=== PATIENT | female | born 1980 | race Caucasian/White ===

== ENCOUNTER 2023-12-28 15:13 | Outpatient (AMB) | payer OTHER, SELFPAY ==
--- NOTE | 2023-12-28 15:20 | A.OFFPC_ITS ---
Vital Signs 12/28/23 15:33 12/28/23 15:38 Height 5 ft 2 in Weight 177 lb 2 oz BMI 32.4 BP 154/82 H 128/84 Blood Pressure Location Lt brachial Lt brachial Position Sitting Sitting Respiration 12 Pulse 94 Pulse Source Pulse Oximeter Pulse Oximetry (%) 100 Oxygen Delivery Method Room Air Intake Visit Reasons: RAUL FROM [facility]/ MEDICATION REFILL Intake Note: New patient visit. Requesting medication for panic attacks when needed. She was taking Xanax. 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 Allergies prednisone Allergy (Severe, Verified 12/28/23 15:23) blood pressure and heart rate elevated, childers skin Sulfa (Sulfonamide Antibiotics) Allergy (Intermediate, Verified 12/28/23 15:23) Rash Tobacco use date assessed: 12/28/23 Dental Screening Dental Screen Date: 12/28/23 Did you have a dental visit in the last 12 months?: Yes Did you have a dental problem in the last 6 months where you did not have access to dental care?: No Was dental information given to patient?: Patient has dentist HPI HPI Comments History of Present Illness Details The patient is a 43 year old female with a past medical history of hypertension, depression/anxiety, migraines presenting to [facility] care. Transfer from [facility] Anxiety: On sertraline 25mg daily. doing well on the medication. Has a lot of difficulty with public speaking-interested in propranolol CV: On lisinopril 5mg daily. Denies chest pain, dizziness. She has been unable to lose weight with diet and exercise and would be interested in GLP agonist therapy Neuro: On imitrex prn. Triggered by stress. Relative just had brain tumor r emoved. ROS CONSTITUTIONAL: Denies weight loss, fever and chills. HEENT: Denies changes in vision and hearing. RESPIRATORY: Denies SOB and cough. CV: Denies palpitations and CP GI: Denies abdominal pain, nausea, vomiting and diarrhea. : Denies dysuria and urinary frequency. MSK: Denies new myalgia and joint pain. SKIN: Denies rash and pruritus. NEUROLOGICAL: Denies headache PSYCHIATRIC: Denies recent changes in mood. PHYSICAL EXAM: GENERAL: Alert and oriented x 3. NAD EYES: EOMI. Anicteric. HENT: Moist mucous membranes. No scleral icterus. No cervical lymphadenopathy. LUNGS: Clear to auscultation bilaterally. CARDIOVASCULAR: Regular rate and rhythm. No murmur. No JVD. ABDOMEN: Soft, non-tender +bs EXTREMITIES: No edema. Non-tender. SKIN: No rashes or lesions. Warm. NEUROLOGIC: No focal neurological deficits. CN II-XII grossly intact PSYCHIATRIC: Cooperative. 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 1. Little interest or pleasure in doing things: not at all 2. Feeling down, depressed, or hopeless: not at all 3. Trouble falling or staying asleep, or sleeping too much: not at all 4. Feeling tired or having little energy: not at all 5. Poor appetite or overeating: not at all 6. Feeling bad about yourself - or that you are a failure or have let yourself or your family down: not at all 7. Trouble concentrating on things, such as reading the newspaper or watching television: not at all 8. Moving or speaking so slowly that other people could have noticed. Or the opposite - being so fidgety or restless that you have been moving around a lot more than usual: not at all 9. Thoughts that you would be better off or of hurting yourself in some way: not at all Total score: 0 Depression Screening Interpretation: Negative (neg) Depression Screening Done: Yes 68027 - PHQ-9 Billing: Yes Source: Developed by Drs. Richard Rowan, Aixa Barnhart, Giorgio Brooks and colleagues, with an educational genaro from [employer] Thrive Questionnaire Date Thrive assessed: 12/28/23 I am a: Patient What is your living situation today?: I have a steady place to live Within the past 12 months, did the food you bought not last and you didn't have the money to get more?: Never true Within the past 12 months, did you worry whether your food would run out before you got money to buy more?: I choose not to answer this question Do you have trouble paying for medicines?: No Do you have trouble getting transportation to medical appointments?: No Do you have trouble paying your heating and electricity bill?: I choose not to answer this question Do you have trouble taking care of your child, family member or friend?: No Do you have trouble with day-to-day activities such as bathing, preparing meals, shopping, managing finances, etc.?: No Are you currently unemployed and looking for a job?: No Are you interested in more education?: No Please select the resources that you would like help with: None Currently or been in a relationship where the following occur: No concerns reported THRIVE Score: 0 AUDIT C Alcohol Use Questionnaire (AUDIT-C) 1. How often do you have a drink containing alcohol?: Monthly or less 2. How many drinks containing alcohol do you have on a typical day when you are drinking?: 1 or 2 3. How often do you have six or more drinks on one occasion?: Never Total Score: 1 WOODROW-7 AMB Questionnaire WOODROW-7 Date WOODROW - 7 assessed: 12/28/23 Feeling nervous, anxious, or on edge: 3 = Nearly every day Not being able to stop or control worryin = Nearly every day Worrying too much about different things: 3 = Nearly every day Trouble relaxin = Nearly every day Being so restless that it is hard to sit still: 0 = Not at all Becoming easily annoyed or irritable: 0 = Not at all Feeling afraid as if something awful might happen: 0 = Not at all Total WOODROW-7 score (0-4 normal; 5-9 mild; 10-14 moderate; 15-21 severe): 12 Source: Developed by Drs. Richard Rowan, Aixa Barnhart, Giorgio Brooks and colleagues, with an educational genaro from [employer] WOODROW-7 Assessment Billing WOODROW-7 Assessment Tool: WOODROW-7 Assessment 92761 Physical exam (Primary Care) Vital Signs: Last Vital Signs Pulse 94 12/28/23 15:33 Resp 12 12/28/23 15:33 BP 128/84 12/28/23 15:38 Pulse Ox 100 12/28/23 15:33 Oxygen Delivery Method Room Air 12/28/23 15:33 BMI result Body Mass Index 32.4 Tobacco/Smoking Status: Tobacco use Status Tobacco use date assessed 12/28/23 12/28/23 15:36 Patient Tobacco Use Status Former Tobacco user 12/28/23 15:36 e-Cigarette/Vaping Use Never Used 12/28/23 15:36 PHQ-9: PHQ-9 Score PHQ-9: Total score 0 12/30/23 10:07 Depression Screening Interpretation: Negative (neg) Thrive Assessment: Date of Thrive Assessment Date Thrive assessed 12/28/23 12/28/23 15:40 Currently or been in a relationship where the following occur: No concerns reported Coding Level of Care Code New Pt Level 4 (15833) Complex EM visit Add On G2211 Diagnoses Anxiety F41.9 Migraine without status migrainosus, not intractable, unspecified migraine type G43.909 Intractability: not intractable Migraine type: unspecified Status migrainosus presence: without status migrainosus Additional Codes WOODROW-7 Assessment Billing - WOODROW-7 Assessment Tool: WOODROW-7 Assessment 93022 ([id number]) PHQ-9 - 00156 - PHQ-9 Billing: Yes ([id number]) Assessment & Plan Assessment & Plan (1) Anxiety: Code(s): F41.9 - Anxiety disorder, unspecified Category: Medical Plan: Controlled on sertraline Has used xanax in past for panic attacks which are infrequent-ordered Propranolol for presentations (2) Migraine: Code(s): G43.909 - Migraine, unspecified, not intractable, without status migrainosus Category: Medical Qualifiers: Intractability: not intractable Migraine type: unspecified Status migrainosus presence: without status migrainosus Qualified Code(s): G43.909 - Migraine, unspecified, not intractable, without status migrainosus Plan: stable on current therapy Orders: Orders Complete Blood Count Auto Diff 12/29/23 D64.9 - Anemia, unspecified, F41.9 - Anxiety disorder, unspecified, Z13.220 - Encounter for screening for lipoid disorders, Z13.228 - Encounter for screening for other metabolic disorders Comprehensive Met. Panel 12/29/23 D64.9 - Anemia, unspecified, F41.9 - Anxiety disorder, unspecified, Z13.220 - Encounter for screening for lipoid disorders, Z13.228 - Encounter for screening for other metabolic disorders Estradiol Ultra Sensitive 12/29/23 D64.9 - Anemia, unspecified, F41.9 - Anxiety disorder, unspecified, Z13.220 - Encounter for screening for lipoid disorders, Z13.228 - Encounter for screening for other metabolic disorders AMB Cologuard 12/28/23 Z12.11 - Encounter for screening for malignant neoplasm of colon, Z12.12 - Encounter for screening for malignant neoplasm of rectum Lipid Panel 12/29/23 D64.9 - Anemia, unspecified, F41.9 - Anxiety disorder, unspecified, Z13.220 - Encounter for screening for lipoid disorders, Z13.228 - Encounter for screening for other metabolic disorders TSH reflex Free T4 12/29/23 D64.9 - Anemia, unspecified, F41.9 - Anxiety disorder, unspecified, Z13.220 - Encounter for screening for lipoid disorders, Z13.228 - Encounter for screening for other metabolic disorders Lyme IgG/IgM w/reflex to WB 12/29/23 D64.9 - Anemia, unspecified, F41.9 - Anxiety disorder, unspecified, Z13.220 - Encounter for screening for lipoid disorders, Z13.228 - Encounter for screening for other metabolic disorders Lutenizing Hormone 12/29/23 D64.9 - Anemia, unspecified, F41.9 - Anxiety disorder, unspecified, Z13.220 - Encounter for screening for lipoid disorders, Z13.228 - Encounter for screening for other metabolic disorders Referrals Dermatology Referral D64.9 - Anemia, unspecified, F41.9 - Anxiety disorder, unspecified, Z00.00 - Encounter for general adult medical examination without ab normal findings, Z13.220 - Encounter for screening for lipoid disorders, Z13.228 - Encounter for screening for other metabolic disorders Medications: New sumatriptan succinate take 1 tab at onset of headache; if no relief may repeat 1 tab after at least 2 hrs; max = 4 tabs/24 hr PO 30 tabs 3RF lisinopril 5 mg PO DAILY 90 tabs 3RF alprazolam (Xanax) 0.5 mg PO DAILY PRN 20 tabs 0RF anxiety propranolol 10 mg PO DAILY 30 days PRN 30 tabs 3RF social anxiety Mounjaro (tirzepatide) for 4 weeks 2.5 mg (0.5 mL) subcut QWEEK 2 mL 3RF NS ondansetron HCl 4 mg PO Q8H 30 tabs 3RF sertraline 25 mg PO DAILY 90 tabs 3RF linaclotide (Linzess) 145 mcg PO DAILY 90 caps 3RF
[2023-12-28 15:33] VITALS: BP 154/82; PULSE 94; RESP 12; O2SAT 100; BMI 32.4
[2023-12-28 15:38] VITALS: BP 128/84
== END 2023-12-28 16:52 | disposition home or self-care (01) ==
PROVIDERS: PCP Internal Medicine; Visit Provider Internal Medicine
DX: F41.9 Anxiety disorder, unspecified (principal); G43.909 Migraine, unspecified, not intractable, without status migrainosus

== ENCOUNTER → 2023-12-28 15:13 | Outpatient (BNVA) | payer OTHER, SELFPAY | PROVIDERS: PCP Internal Medicine; Visit Provider Internal Medicine | DX: F41.9 Anxiety disorder, unspecified (principal); G43.909 Migraine, unspecified, not intractable, without status migrainosus; Z79.899 Other long term (current) drug therapy | CPT/HCPCS: 96127 ==

== ENCOUNTER 2023-12-29 07:34 | Outpatient (REF) | payer OTHER, SELFPAY ==
[2023-12-29 11:09] LABS: MANUAL DIFF FLAG NO
[2023-12-29 11:23] LABS: Basophils Percent Auto 0.8 % (0-2); Eosinophils Absolute Auto 0.1 X10*3/uL (0.0-0.4); Eosinophils Percent Auto 2.1 % (0-4); Hematocrit 44.3 % (37.0-47.0); Hemoglobin 14.8 g/dl (12.0-16.0); Imm Gran Abs Auto 0.01 X10*3/uL (0.00-0.03); Imm Gran Pct Auto 0.2 % (0.0-0.4); Lymphocytes Absolute Auto 1.9 X10*3/uL (1.2-4.9); Lymphocytes Percent Auto 35.4 % (20-40); Mean Corpuscular HGB Conc 33.4 g/dl (31.0-35.0); Mean Corpuscular Hemoglobin 31.5 pg (27.0-33.0); Mean Corpuscular Volume 94.3 fL (80.0-98.0); Mean Platelet Volume 12.4 fL (9.4-12.3); Monocytes Absolute Auto 0.4 X10*3/uL (0.1-1.2); Monocytes Percent Auto 7.3 % (2-11); Neutrophils Absolute Auto 2.8 x10*3/uL (2.0-8.3); Neutrophils Percent Auto 54.2 % (45-73); Platelet Count 223 X10*3/uL (160-400); Red Cell Distribution Width 12.2 % (11.0-16.0); White Blood Count 5.2 X10*3/uL (4.8-10.8)
[2023-12-29 12:06] LABS: Alanine Aminotransferase 20 U/L (0-31); Albumin Level 4.4 g/dL (3.5-5.0); Alkaline Phosphatase 56 U/L (39-117); Anion Gap 8 (12-20); Aspartate Amino Transferase 23 U/L (5-31); Bilirubin Total 0.4 mg/dL (0.0-1.0); Blood Urea Nitrogen 11 mg/dL (9-16); Calcium 9.2 mg/dL (8.4-10.2); Carbon Dioxide 28 mmol/L (22-29); Chloride 109 mmol/L (96-108); Cholesterol 183 mg/dL (<200); Estimated Glomerular Filt Rate > 60; Glucose Random 87 mg/dL (60-115); HDL Cholesterol 54 mg/dL (>40); LDL Cholesterol Calculated 116 mg/dL (<100); Potassium 3.8 mmol/L (3.3-5.1); Sodium 141 mmol/L (135-145); TSH reflex Free T4 2.35 uIU/mL (0.32-4.0); Total Protein 7.2 g/dL (6.5-8.0); Triglycerides 68 mg/dL (<150)
[2023-12-30 12:38] LABS: Lutenizing Hormone 14.7 mIU/mL
[2023-12-30 18:34] LABS: Lyme Abs Screen <0.90 index
[2024-01-08 06:23] LABS: Estradiol Ultra Sensitive 49 pg/mL
== END 2023-12-29 07:35 | disposition home or self-care (01) ==
LOC: HO.WFDLDS 07:34
PROVIDERS: Visit Provider Internal Medicine
DX: D64.9 Anemia, unspecified (principal); Z13.228 Encounter for screening for other metabolic disorders; Z13.220 Encounter for screening for lipoid disorders; F41.9 Anxiety disorder, unspecified
CPT/HCPCS: 36415; 80053; 80061; 82670; 83002; 84443; 85025; 86617; 86618

== ENCOUNTER → 2024-02-08 16:09 | Outpatient (AMB) | payer OTHER, SELFPAY ==
--- NOTE | 2024-02-08 15:53 | MHC.PC.OV ---
Intake Visit Reasons: Meds review [phone] Intake Note: Medication review. Registered Nurse Fetal Required: No Allergies prednisone Allergy (Severe, Verified 02/08/24 15:53) blood pressure and heart rate elevated, childers skin Sulfa (Sulfonamide Antibiotics) Allergy (Intermediate, Verified 02/08/24 15:53) Rash Tobacco use date assessed: 12/28/23 Dental Screening Dental Screen Date: 12/28/23 HPI HPI Comments History of Present Illness Details The patient is a 43 year old female with a past medical history of hypertension, depression/anxiety, migraines presenting for follow up Anxiety: On sertraline 25mg daily. doing well on the medication. Has a lot of difficulty with public speaking-interested in propranolol. Continues prn xanax CV: On lisinopril 5mg daily. Denies chest pain, dizziness. She has been unable to lose weight with diet and exercise and would be interested in GLP agonist therapy. Her insurance would not cover mounjaro but may cover zepbound. Neuro: On imitrex prn. Requests nasal spray. Triggered by stress. Relative just had brain tumor removed. ROS CONSTITUTIONAL: Denies weight loss, fever and chills. HEENT: Denies changes in vision and hearing. RESPIRATORY: Denies SOB and cough. CV: Denies palpitations and CP GI: Denies abdominal pain, nausea, vomiting and diarrhea. : Denies dysuria and urinary frequency. MSK: Denies new myalgia and joint pain. SKIN: Denies rash and pruritus. NEUROLOGICAL: Denies headache PSYCHIATRIC: Denies recent changes in mood. 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 Richard Rowan, Aixa Barnhart, Giorgio Brooks and colleagues, with an educational genaro from [employer]. Physical exam (Primary Care) Tobacco/Smoking Status: Tobacco use Status Tobacco use date assessed 12/28/23 02/08/24 15:55 Patient Tobacco Use Status Former Tobacco user 02/08/24 15:55 e-Cigarette/Vaping Use Never Used 02/08/24 15:55 Thrive Assessment: Date of Thrive Assessment Date Thrive assessed 12/28/23 02/08/24 15:55 Telehealth Telehealth Telehealth Platform: Telephone Location of provider rendering services: practice address Location of patient: address on file Patient Identification confirmed using: Name, : Yes Telehealth method: voice only Patient verbally consented to treatment: Yes Patient verbally consented to billing insurance company: Yes Patient informed of any privacy concerns related to visit: Yes Minutes spent on Phone/Video with Pt.: 32 Coding Level of Care Code Tele Est Pt Level 4 (10043) Diagnoses Migraine without status migrainosus, not intractable, unspecified migraine type G43.909 Migraine type: unspecified Status migrainosus presence: without status migrainosus Intractability: not intractable Obesity (BMI 30.0-34.9) E66.811 Assessment & Plan Assessment & Plan (1) Migraine: Code(s): G43.909 - Migraine, unspecified, not intractable, without status migrainosus Category: Medical Qualifiers: Migraine type: unspecified Status migrainosus presence: without status migrainosus Intractability: not intractable Qualified Code(s): G43.909 - Migraine, unspecified, not intractable, without status migrainosus Plan: Request change to nasal imitrex. Starts working faster with less side effects (2) Obesity (BMI 30.0-34.9): Code(s): E66.811 - Obesity, class 1 Category: Medical Plan: Failed diet, exercise. Has seen nutrition in the past. zepbound ordered. Medications: New Zepbound (tirzepatide (weight loss)) for 4 weeks 2.5 mg (0.5 mL) subcut QWEEK 2 mL 0RF NS E66.811 - Obesity, class 1, I10 - Essential (primary) hypertension sumatriptan 20 mg/actuation administer into one nostril as a single dose; if 2nd dose needed,administer into other nostril after at least 2 hrs, NTE 2 doses (40 mg) per episode 20 mg intranasal Q2H PRN 6 ea 3RF migraine headache Discontinued sumatriptan succinate Discontinued Reason: Doctor's Order take 1 tab at onset of headache; if no relief may repeat 1 tab after at least 2 hrs; max = 4 tabs/24 hr PO 30 tabs 3RF Mounjaro (tirzepatide) for 4 weeks Discontinued Reason: Doctor's Order 2.5 mg (0.5 mL) subcut QWEEK 2 mL 3RF NS
== END ==
LOC: HO.HMCFM 16:09
PROVIDERS: PCP Internal Medicine; Visit Provider Internal Medicine
DX: G43.909 Migraine, unspecified, not intractable, without status migrainosus (principal); E66.811 Obesity, class 1

== ENCOUNTER 2024-05-25 13:46 | Outpatient (AMB) | payer OTHER, SELFPAY ==
--- NOTE | 2024-05-25 13:52 | MHC.PC.OV ---
Vital Signs 05/25/24 14:05 Height 5 ft 2 in Weight 171 lb 8 oz BMI 31.4 BP 126/84 Blood Pressure Location Lt brachial Position Sitting Respiration 12 Pulse 92 Pulse Source Pulse Oximeter Pulse Oximetry (%) 100 Oxygen Delivery Method Room Air Intake Visit Reasons: Allergic reaction / high heart rate [facility] Intake Note: Emergency room follow up. ER doctor thought allergy could be either a food allergy or Zepbound. Citrix Lead Required: No Allergies prednisone Allergy (Severe, Verified 05/25/24 14:01) blood pressure and heart rate elevated, childers skin Sulfa (Sulfonamide Antibiotics) Allergy (Intermediate, Verified 05/25/24 14:01) Rash Medication List - Last Reconciled 05/25/24 by Devora Henson PA-C alprazolam (Xanax) 0.5 mg PO DAILY PRN linaclotide (Linzess) 145 mcg PO DAILY lisinopril 5 mg PO DAILY ondansetron HCl 4 mg PO Q8H propranolol 10 mg PO DAILY PRN sumatriptan 20 mg/actuation 20 mg intranasal Q2H PRN Zepbound (tirzepatide (weight loss)) 2.5 mg (0.5 mL) subcut QWEEK NS Tobacco use date assessed: 05/25/24 Dental Screening Dental Screen Date: 12/28/23 HPI Allergic reaction / high heart rate [facility] HPI Details Pt is a 44 y/o female who presents today for a follow up from urgent care. She states that she felt dizzy, a little like her tongue was enlarged, and hives all over her face and neck. She went to a walk in clinic and was given iv benadryl. She states it did start after she tried [place] edamame. She has had this in the past just not [place] flavored and has never had a reaction. She states that she is sensitive to different things but has never had an allergic reaction like this. She has seen an rn dermatology in the past in [place] and would like to go back to them. She is also worried that it could be an allergic reaction to the Zepbound. She was started on this a couple of months ago by her PCP and did have some good results with this and did not have any side effects other than feeling a little lightheaded at times. She says that the urgent care instructed her to discontinue this as well just in case it is an allergic reaction. While she was also at the urgent care her heart rate was a little elevated and she says that she does have a lot of anxiety and that sometimes when she gets to that point it can be hard to lower it. CV: Blood pressure today in the office is 126/84. She is on lisinopril 5 mg and uses propranolol as needed. Psych: States that sometimes she has anxiety and uses propranolol or Xanax as needed. 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 1. Little interest or pleasure in doing things: not at all 2. Feeling down, depressed, or hopeless: not at all 3. Trouble falling or staying asleep, or sleeping too much: not at all 4. Feeling tired or having little energy: several days 5. Poor appetite or overeating: several days 6. Feeling bad about yourself - or that you are a failure or have let yourself or your family down: not at all 7. Trouble concentrating on things, such as reading the newspaper or watching television: not at all 8. Moving or speaking so slowly that other people could have noticed. Or the opposite - being so fidgety or restless that you have been moving around a lot more than usual: not at all 9. Thoughts that you would be better off or of hurting yourself in some way: not at all Total score: 2 Source: Developed by Drs. Richard Rowan, Aixa B.Giorgio Tafoya and colleagues, with an educational genaro from [employer]. Thrive Questionnaire Date Thrive assessed: 12/28/23 I am a: Patient What is your living situation today?: I have a steady place to live Within the past 12 months, did the food you bought not last and you didn't have the money to get more?: I choose not to answer this question Within the past 12 months, did you worry whether your food would run out before you got money to buy more?: I choose not to answer this question Do you have trouble paying for medicines?: No Do you have trouble getting transportation to medical appointments?: No Do you have trouble paying your heating and electricity bill?: I choose not to answer this question Do you have trouble taking care of your child, family member or friend?: No Do you have trouble with day-to-day activities such as bathing, preparing meals, shopping, managing finances, etc.?: No Are you currently unemployed and looking for a job?: No Are you interested in more education?: No Please select the resources that you would like help with: None Currently or been in a relationship where the following occur: I choose not to answer THRIVE Score: 0 AUDIT C Alcohol Use Questionnaire (AUDIT-C) 1. How often do you have a drink containing alcohol?: Never Total Score: 0 WOODROW-7 AMB Questionnaire WOODROW-7 Date WOODROW - 7 assessed: 12/28/23 Feeling nervous, anxious, or on edge: 1 = Several days Not being able to stop or control worryin = Not at all Worrying too much about different things: 0 = Not at all Trouble relaxin = Several days Being so restless that it is hard to sit still: 0 = Not at all Becoming easily annoyed or irritable: 0 = Not at all Feeling afraid as if something awful might happen: 0 = Not at all Total WOODROW-7 score (0-4 normal; 5-9 mild; 10-14 moderate; 15-21 severe): 2 Source: Developed by Drs. Richard Rowan, Giorgio Elizondo and colleagues, with an educational genaro from [employer]. Physical exam (Primary Care) Vital Signs: Last Vital Signs Pulse 92 05/25/24 14:05 Resp 12 05/25/24 14:05 BP 126/84 05/25/24 14:05 Pulse Ox 100 05/25/24 14:05 Oxygen Delivery Method Room Air 05/25/24 14:05 BMI result Body Mass Index 31.4 Tobacco/Smoking Status: Tobacco use Status Tobacco use date assessed 05/25/24 05/25/24 13:53 Patient Tobacco Use Status Former Tobacco user 05/25/24 13:53 e-Cigarette/Vaping Use Never Used 05/25/24 13:53 PHQ-9: PHQ-9 Score PHQ-9: Total score 2 05/25/24 14:29 Thrive Assessment: Date of Thrive Assessment Date Thrive assessed 12/28/23 05/25/24 13:53 Currently or been in a relationship where the following occur: I choose not to answer Const Orientation/consciousness: patient oriented x3 HENMT Ears: hearing grossly normal bilaterally Neck Thyroid: Thyroid normal Lymphatic: no lymphadenopathy noted Resp Auscultation: clear to auscultation bilaterally Cardio Rate: regular rate Rhythm: regular rhythm Heart sounds: S1 normal heart sound present and S2 normal heart sound present GI Inspection: Yes normal to inspection Palpation (GI): Soft to palpation and Other GI palpation findings present (nontender, no cva tenderness) Auscultation: normoactive bowel sounds Rectal Exam - Female: deferred Skin General skin exam: no rashes or lesions noted Neuro General: patient oriented x3, gait normal and no focal motor deficits Coding Level of Care Code Est Pt Level 4 (27762) Complex EM visit Add On G2211 Diagnoses Allergic reaction T78.40XA Hypertension I10 Obesity (BMI 30.0-34.9) E66.811 Assessment & Plan Assessment & Plan (1) Allergic reaction: Code(s): T78.40XA - Allergy, unspecified, initial encounter Category: Medical Plan: Currently resolved. Referral to Allergy and immunology. I did refill EpiPen for her to have with her. Advised to keep Benadryl with her as well. We did discuss signs and symptoms of anaphylaxis and that she should go to the emergency room should this happen again. We did discuss that you can also anaphylactic up to 96 hours. Did discuss with her that I do think that this is likely soy/food related and not necessarily Zepbound but advised to continue holding this anyways until she sees Allergy and immunology. (2) Hypertension: Code(s): I10 - Essential (primary) hypertension Category: Medical Plan: WNL. Continue current regimen (3) Obesity (BMI 30.0-34.9): Code(s): E66.811 - Obesity, class 1 Category: Medical Plan: As above. Orders: Referrals Allergy & Immunology Referral T78.40XA - Allergy, unspecified, initial encounter Medications: New epinephrine for 2 doses 0.3 mg (0.3 mL) IM Q10M PRN 2 ea 1RF anaphylaxis
[2024-05-25 14:05] VITALS: BP 126/84; PULSE 92; RESP 12; O2SAT 100; BMI 31.4
--- OUTSIDE RECORDS SUMMARY | 2024-05-25 16:26 | XMS_ITS | Clinical Summary ---
Author Organization [employer] Address [address] [place] [address] Care Team Providers Care Railroad Construction Director Name Role Phone Unavailable Primary Care Provider Unavailabl e Allergies Active Allergy Reactions Criticality Noted Date Comments Sulfa Antibiotics Hives 03/31/2023 Medications lisinopril 5 MG tablet Take 2.5 mg by mouth in the morning. 03/14/2023 Active sertraline (Zoloft) 25 MG tablet Take 25 mg by mouth in the morning. Active Social History Tobacco Use Types Packs/Day Years Used Date Smoking Tobacco: Never Assessed Comments Unknown Sex and Gender Information Value Date Recorded Sex Assigned at Female 03/31/2023 8:07 AM EST Legal Sex Female 8:04 AM EST Gender Identity Female 03/31/2023 8:07 AM EST Sexual Orientation Straight 03/31/2023 8: 07 AM EST Plan of Treatment Health Maintenance Due Date Last Done Comments CT Colonography 1978 Colonoscopy 1978 Colorectal Cancer Screening 1978 Dental Oral Exam 1978 Dental Prophylaxis 1978 Dental X-Ray: Full Mouth 1978 Depression Screening 1978 FIT DNA/Cologuard 1978 FIT 1978 FOBT 1978 HIV Screening 1978 SDOH Screening 1978 Sigmoidoscopy 1978 Alcohol/Substance Use Screening 1990 Tobacco Screening 1990 Family Planning (PISQ) 1993 Hepatitis C Screening 1996 Hepatitis B Vaccines (1 of 3 - 19+ 3-dose series) 1997 Pap Smear 05/13/1999 Cervical Cancer Screening 2008 HPV/Cotest 2008 Mammogram 2018 COVID-19 Vaccine (2023-2 5 season) 2023 04/27/2021, 11/06/2020, 10/16/2020 Influenza Vaccine (#1) 2023 , 10/29/2015 Dental X-Ray: Bitewings 04/01/2024 03/31/2023 DTaP/Tdap/Td Vaccines (2 - T d or Tdap) 10/28/2025 10/29/2015 Zoster Vaccines (1 of 2) 2028 RSV Patients and Patients Aged 60 years or older (1 - 1-dose 75+ series) 2053 HIB Vaccines Aged Out No longer eligi ble based on patient's age to complete this topic HPV Vaccines Aged Out No longer eligi ble based on patient's age to complete this topic Hepatitis A Vaccines Aged Out No long er eligible based on patient's age to complete this topic IPV Vaccines Aged Out No longer eligi ble based on patient's age to complete this topic Meningococcal Vaccine Aged Out No shaquille mallory eligible based on patient's age to complete this topic Pneumococcal Vaccine: Pediatrics (0 to 5 Years) and At-Risk Patients (6 to 49) Years) Aged Out No longer eligible b ased on patient's age to complete this topic RSV under 20 months Aged Out No longe r eligible based on patient's age to complete this topic Rotavirus Vaccines Aged Out No longer eligible based on patient's age to complete this topic Procedures Procedure Name Priority Date/Time Associated Diagnosis Comments BITEWING - SINGLE RADIOGRAPHIC IMAGE Routine 03/31/2023 9:00 AM EST from Last 3 Months or Most Recently Relevant to Health Maintenance Insurance DENTAL - [facility]
== END 2024-05-25 14:42 | disposition home or self-care (01) ==
LOC: HO.HMCFM 13:47
PROVIDERS: PCP Internal Medicine; Visit Provider Physician Assistant
DX: T78.40XA Allergy, unspecified, initial encounter (principal); I10 Essential (primary) hypertension; E66.811 Obesity, class 1; Z68.31 Body mass index [BMI] 31.0-31.9, adult

== ENCOUNTER → 2024-05-25 13:46 | Outpatient (BNVA) | payer OTHER, SELFPAY | PROVIDERS: PCP Internal Medicine; Visit Provider Physician Assistant ==

== ENCOUNTER 2024-08-30 10:04 | Outpatient (AMB) | payer OTHER, SELFPAY ==
--- NOTE | 2024-08-30 10:08 | MHC.PC.OV ---
Vital Signs 08/30/24 10:13 Height 5 ft 2 in Weight 172 lb BMI 31.5 BP 118/84 Blood Pressure Location Lt brachial Position Sitting Respiration 12 Pulse 85 Pulse Source Pulse Oximeter Pulse Oximetry (%) 99 Oxygen Delivery Method Room Air Intake Visit Reasons: Med. Review Intake Note: Mediation follow up Flight Radio Operator Required: No Allergies prednisone Allergy (Severe, Verified 08/30/24 10:10) blood pressure and heart rate elevated, childers skin tirzepatide (From Zepbound) Allergy (Severe, Verified 08/30/24 10:13) dizzy Sulfa (Sulfonamide Antibiotics) Allergy (Intermediate, Verified 08/30/24 10:10) Rash Tobacco use date assessed: 08/30/24 Dental Screening Dental Screen Date: 08/30/24 Did you have a dental visit in the last 12 months?: Yes Did you have a dental problem in the last 6 months where you did not have access to dental care?: No Was dental information given to patient?: Patient has dentist HPI HPI Comments History of Present Illness Details The patient is a 44 year old female with a past medical history of hypertension, depression/anxiety, migraines presenting for follow up Anxiety: On sertraline 25mg daily. Doing well on the medication. Has a lot of difficulty with public speaking-has prn propranolol. Continues prn xanax CV: On lisinopril 5mg daily. Denies chest pain, dizziness. She has been unable to lose weight with diet and exercise. She took zepbound successfully for one month but she had an unexplained anaphylactic reaction. She went to allergy and had extensive food allergy testing and glp allergy testing-she was negative to all Neuro: On imitrex prn. Requests nasal spray. ROS CONSTITUTIONAL: Denies weight loss, fever and chills. HEENT: Denies changes in vision and hearing. RESPIRATORY: Denies SOB and cough. CV: Denies palpitations and CP GI: Denies abdominal pain, nausea, vomiting and diarrhea. : Denies dysuria and urinary frequency. MSK: Denies new myalgia and joint pain. SKIN: Denies rash and pruritus. NEUROLOGICAL: Denies headache PSYCHIATRIC: Denies recent changes in mood. PHYSICAL EXAM: GENERAL: Alert and oriented x 3. NAD EYES: EOMI. Anicteric. HENT: Moist mucous membranes. No scleral icterus. No cervical lymphadenopathy. LUNGS: Clear to auscultation bilaterally. CARDIOVASCULAR: Regular rate and rhythm. No murmur. No JVD. ABDOMEN: Soft, non-tender +bs EXTREMITIES: No edema. Non-tender. SKIN: No rashes or lesions. Warm. NEUROLOGIC: No focal neurological deficits. CN II-XII grossly intact PSYCHIATRIC: Cooperative. 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 Current occupational exposures/hazards: No Cognitive needs: No Hearing needs: No Vision needs: Yes (glasses) Questionnaire Thrive Questionnaire Date Thrive assessed: 05/25/24 I am a: Patient What is your living situation today?: I have a steady place to live Within the past 12 months, did the food you bought not last and you didn't have the money to get more?: I choose not to answer this question Within the past 12 months, did you worry whether your food would run out before you got money to buy more?: I choose not to answer this question Do you have trouble paying for medicines?: No Do you have trouble getting transportation to medical appointments?: No Do you have trouble paying your heating and electricity bill?: I choose not to answer this question Do you have trouble taking care of your child, family member or friend?: No Do you have trouble with day-to-day activities such as bathing, preparing meals, shopping, managing finances, etc.?: No Are you currently unemployed and looking for a job?: No Are you interested in more education?: No Please select the resources that you would like help with: None Currently or been in a relationship where the following occur: I choose not to answer THRIVE Score: 0 WOODROW-7 AMB Questionnaire WOODROW-7 Date WOODROW - 7 assessed: 12/28/23 Source: Developed by Drs. Richard Rowan, iAxa Barnhart, Giorgio Brooks and colleagues, with an educational genaro from [employer]. Physical exam (Primary Care) Vital Signs: Last Vital Signs Pulse 85 08/30/24 10:13 Resp 12 08/30/24 10:13 BP 118/84 08/30/24 10:13 Pulse Ox 99 08/30/24 10:13 Oxygen Delivery Method Room Air 08/30/24 10:13 BMI result Body Mass Index 31.5 Tobacco/Smoking Status: Tobacco use Status Tobacco use date assessed 08/30/24 08/30/24 10:18 Patient Tobacco Use Status Former Tobacco user 08/30/24 10:18 e-Cigarette/Vaping Use Never Used 08/30/24 10:18 Thrive Assessment: Date of Thrive Assessment Date Thrive assessed 05/25/24 08/30/24 10:18 Currently or been in a relationship where the following occur: I choose not to answer Coding Level of Care Code Est Pt Level 4 (28029) Diagnoses Primary hypertension I10 Hypertension type: primary hypertension Allergic reaction, subsequent encounter T78.40XD Encounter type: subsequent encounter Migraine without status migrainosus, not intractable, unspecified migraine type G43.909 Migraine type: unspecified Status migrainosus presence: without status migrainosus Intractability: not intractable Assessment & Plan Assessment & Plan (1) Hypertension: Code(s): I10 - Essential (primary) hypertension Category: Medical Qualifiers: Hypertension type: primary hypertension Qualified Code(s): I10 - Essential (primary) hypertension (2) Allergic reaction: Code(s): T78.40XA - Allergy, unspecified, initial encounter Category: Medical Qualifiers: Encounter type: subsequent encounter Qualified Code(s): T78.40XD - Allergy, unspecified, subsequent encounter (3) Migraine: Code(s): G43.909 - Migraine, unspecified, not intractable, without status migrainosus Category: Medical Qualifiers: Migraine type: unspecified Status migrainosus presence: without status migrainosus Intractability: not intractable Qualified Code(s): G43.909 - Migraine, unspecified, not intractable, without status migrainosus Plan 44 year old for follow up HTN is well controlled on current medications Migraines-stable frequency and severity Allergic reaction-unknown precipitant-continue allergy prn
[2024-08-30 10:13] VITALS: BP 118/84; PULSE 85; RESP 12; O2SAT 99; BMI 31.5
--- OUTSIDE RECORDS SUMMARY | 2024-08-30 11:05 | XMS_ITS | Clinical Summary ---
Author Organization [employer] Address [address] [place] [address] Care Team Providers Care Break Off Worker Name Role Phone Unavailable Primary Care Provider [...] Screening 1978 SDOH Screening 1978 Sigmoidoscopy 1978 Disability Screening 1978 Alcohol/Substance Use Screening 1990 Tobacco Screening 1990 Family Planning (PISQ) 1993 Hepatitis C Screening 1996 Hepatitis B Vaccines (1 of 3 - 19+ 3-dose series) 1997 Pap Smear 05/13/1999 Cervical Cancer Screening 2008 HPV/Cotest 2008 Mammogram 2018 COVID-19 Vaccine (2023-2 5 season) 2023 04/27/2021, 11/06/2020, 10/16/2020 Dental X-Ray: Bitewings 04/01/2024 03/31/2023 Influenza Vaccine (#1) 2024 , 10/29/2015 DTaP/Tdap/Td Vaccines (2 - T d or [...] patient's age to complete this topic Meningococcal B Vaccine Aged Out No l onger eligible based on patient's age to complete this topic Meningococcal Vaccine Aged Out No shaquille mallory eligible based on patient's age to complete this topic Pneumococcal Vaccine: Pediatrics (0 to 5 Years) and At-Risk Patients (6 to 49) Years Aged Out No longer eligible b ased [...] Relevant to Health Maintenance Insurance [facility] - [facility]
== END 2024-08-30 10:36 | disposition home or self-care (01) ==
LOC: HO.HMCFM 10:04
PROVIDERS: PCP Internal Medicine; Visit Provider Internal Medicine
DX: I10 Essential (primary) hypertension (principal); T78.40XD Allergy, unspecified, subsequent encounter; G43.909 Migraine, unspecified, not intractable, without status migrainosus

== ENCOUNTER 2025-02-06 15:57 | Outpatient (AMB) | payer OTHER, SELFPAY ==
--- NOTE | 2025-02-06 15:59 | MHC.PC.OV ---
Vital Signs 02/06/25 16:04 Height 5 ft 2 in Weight 176 lb 2 oz BMI 32.2 BP 138/60 Blood Pressure Location Lt brachial Position Sitting Respiration 16 Pulse 81 Pulse Source Pulse Oximeter Temp 97.4 F Temp Source Oral Pulse Oximetry (%) 100 Oxygen Delivery Method Room Air Intake Visit Reasons: CPE Intake Note: patient here for CPE Pest Control Applicator Required: No Is last menstrual period known: No Post menopausal: No Patient : No Allergies prednisone Allergy (Severe, Verified 02/06/25 16:02) blood pressure and heart rate elevated, childers skin tirzepatide (From Zepbound) Allergy (Severe, Verified 02/06/25 16:02) dizzy Sulfa (Sulfonamide Antibiotics) Allergy (Intermediate, Verified 02/06/25 16:02) Rash Tobacco use date assessed: 02/06/25 Dental Screening Dental Screen Date: 02/06/25 Did you have a dental visit in the last 12 months?: Yes Did you have a dental problem in the last 6 months where you did not have access to dental care?: No Was dental information given to patient?: Patient has dentist HPI HPI Comments History of Present Illness Details The patient is a 44 year old female with a past medical history of hypertension, depression/anxiety, migraines presenting for CPE Anxiety: Previously on sertraline 25mg daily. Has a lot of difficulty with public speaking-has prn propranolol. Continues prn xanax. Has had attention deficit problems since childhood. CV: On lisinopril 5mg daily. Denies chest pain, dizziness. She has been unable to lose weight with diet and exercise. She took zepbound successfully for one month but she had an unexplained anaphylactic reaction. She went to allergy and had extensive food allergy testing and glp allergy testing-she was negative to all. She is interested in trying a different Neuro: On sumatriptan nasal Cologuard ordered ROS CONSTITUTIONAL: Denies weight loss, fever and chills. HEENT: Denies changes in vision and hearing. RESPIRATORY: Denies SOB and cough. CV: Denies palpitations and CP GI: Denies abdominal pain, nausea, vomiting and diarrhea. : Denies dysuria and urinary frequency. MSK: Denies new myalgia and joint pain. SKIN: Denies rash and pruritus. NEUROLOGICAL: Denies headache PSYCHIATRIC: Denies recent changes in mood. PHYSICAL EXAM: GENERAL: Alert and oriented x 3. NAD EYES: EOMI. Anicteric. HENT: Moist mucous membranes. No scleral icterus. No cervical lymphadenopathy. LUNGS: Clear to auscultation bilaterally. CARDIOVASCULAR: Regular rate and rhythm. No murmur. No JVD. ABDOMEN: Soft, non-tender +bs EXTREMITIES: No edema. Non-tender. SKIN: No rashes or lesions. Warm. NEUROLOGIC: No focal neurological deficits. CN II-XII grossly intact PSYCHIATRIC: Cooperative. 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 1. Little interest or pleasure in doing things: not at all 2. Feeling down, depressed, or hopeless: not at all 3. Trouble falling or staying asleep, or sleeping too much: several days 4. Feeling tired or having little energy: more than half the days 5. Poor appetite or overeating: more than half the days 6. Feeling bad about yourself - or that you are a failure or have let yourself or your family down: not at all 7. Trouble concentrating on things, such as reading the newspaper or watching television: more than half the days 8. Moving or speaking so slowly that other people could have noticed. Or the opposite - being so fidgety or restless that you have been moving around a lot more than usual: not at all 9. Thoughts that you would be better off or of hurting yourself in some way: not at all Total score: 7 Depression Screening Interpretation: Positive Depression Screening Follow-up: Existing condition and New Medication prescribed Depression Screening Done: Yes 11415 - PHQ-9 Billing: Yes Source: Developed by Drs. Richard Rowan, Aixa Barnhart, Giorgio Brooks and colleagues, with an educational genaro from [employer] for iPhone and Android. Thrive Questionnaire Date Thrive assessed: 02/06/25 I am a: Patient What is your living situation today?: I have a steady place to live Within the past 12 months, did the food you bought not last and you didn't have the money to get more?: Never true Within the past 12 months, did you worry whether your food would run out before you got money to buy more?: Never true Do you have trouble paying for medicines?: No Do you have trouble getting transportation to medical appointments?: No Do you have trouble paying your heating and electricity bill?: No Do you have trouble taking care of your child, family member or friend?: No Do you have trouble with day-to-day activities such as bathing, preparing meals, shopping, managing finances, etc.?: No Are you currently unemployed and looking for a job?: No Are you interested in more education?: No Please select the resources that you would like help with: None Currently or been in a relationship where the following occur: No concerns reported THRIVE Score: 0 AUDIT C Alcohol Use Questionnaire (AUDIT-C) 1. How often do you have a drink containing alcohol?: Never 3. How often do you have six or more drinks on one occasion?: Never Total Score: 0 Score Reviewed/Action Taken: Yes WOODROW-7 AMB Questionnaire WOODROW-7 Date WOODROW - 7 assessed: 02/06/25 Feeling nervous, anxious, or on edge: 1 = Several days Not being able to stop or control worryin = Several days Worrying too much about different things: 1 = Several days Trouble relaxin = Several days Being so restless that it is hard to sit still: 0 = Not at all Becoming easily annoyed or irritable: 0 = Not at all Feeling afraid as if something awful might happen: 0 = Not at all Total WOODROW-7 score (0-4 normal; 5-9 mild; 10-14 moderate; 15-21 severe): 4 Source: Developed by Aixa Farmer B.W. Obey, Giorgio Brooks and colleagues, with an educational genaro from [employer] for iPhone and Android. WOODROW-7 Assessment Billing WOODROW-7 Assessment Tool: WOODROW-7 Assessment 86577 Physical exam (Primary Care) Vital Signs: Last Vital Signs Temp 97.4 F 02/06/25 16:04 Pulse 81 02/06/25 16:04 Resp 16 02/06/25 16:04 BP 138/60 02/06/25 16:04 Pulse Ox 100 02/06/25 16:04 Oxygen Delivery Method Room Air 02/06/25 16:04 BMI result Body Mass Index 32.2 Tobacco/Smoking Status: Tobacco use Status Tobacco use date assessed 02/06/25 02/06/25 16:06 Patient Tobacco Use Status Former Tobacco user 02/06/25 16:04 e-Cigarette/Vaping Use Never Used 02/06/25 16:04 PHQ-9: PHQ-9 Score PHQ-9: Total score 7 02/06/25 16:37 Depression Screening Interpretation: Positive Depression Screening Follow-up: Existing condition and New Medication prescribed Thrive Assessment: Date of Thrive Assessment Date Thrive assessed 02/06/25 02/06/25 16:37 Currently or been in a relationship where the following occur: No concerns reported Coding Level of Care Code Est Pt Prev Care 40-64y(53583) Diagnoses Annual physical exam Z00.00 Primary hypertension I10 Hypertension type: primary hypertension Attention deficit R41.840 Obesity (BMI 30.0-34.9) E66.811 Additional Codes WOODROW-7 Assessment Billing - WOODROW-7 Assessment Tool: WOODROW-7 Assessment 43858 ([id number]) PHQ-9 - 69360 - PHQ-9 Billing: Yes ([id number]) Assessment & Plan Assessment & Plan (1) Annual physical exam: Code(s): Z00.00 - Encounter for general adult medical examination without abnormal findings Category: Medical (2) Hypertension: Code(s): I10 - Essential (primary) hypertension Category: Medical Qualifiers: Hypertension type: primary hypertension Qualified Code(s): I10 - Essential (primary) hypertension (3) Attention deficit: Code(s): R41.840 - Attention and concentration deficit Category: Medical (4) Obesity (BMI 30.0-34.9): Code(s): E66.811 - Obesity, class 1 Category: Medical Plan 44 year old female presenting for CPE Interval history reviewed Preventive measures for age reviewed. Cologuard ordered. Mammogram ordered Anxiety is stable. Attention deficit-trial adderall CV-blood pressure stable on lisinopril Obesity-start wegovy Orders: Orders TSH reflex Free T4 02/06/25 D64.9 - Anemia, unspecified, F41.9 - Anxiety disorder, unspecified, G43.909 - Migraine, unspecified, not intractable, without status migrainosus, I10 - Essential (primary) hypertension, T78.40XD - Allergy, unspecified, subsequent encounter, Z13.220 - Encounter for screening for lipoid disorders Hemoglobin A1c 02/06/25 D64.9 - Anemia, unspecified, F41.9 - Anxiety disorder, unspecified, G43.909 - Migraine, unspecified, not intractable, without status migrainosus, I10 - Essential (primary) hypertension, T78.40XD - Allergy, unspecified, subsequent encounter, Z13.220 - Encounter for screening for lipoid disorders PT Evaluation and Treatment 02/06/25 M54.2 - Cervicalgia, M54.50 - Low back pain, unspecified, N62 - Hypertrophy of breast Complete Blood Count Auto Diff 02/06/25 D64.9 - Anemia, unspecified, F41.9 - Anxiety disorder, unspecified, G43.909 - Migraine, unspecified, not intractable, without status migrainosus, I10 - Essential (primary) hypertension, T78.40XD - Allergy, unspecified, subsequent encounter, Z13.220 - Encounter for screening for lipoid disorders Comprehensive Met. Panel 02/06/25 D64.9 - Anemia, unspecified, F41.9 - Anxiety disorder, unspecified, G43.909 - Migraine, unspecified, not intractable, without status migrainosus, I10 - Essential (primary) hypertension, T78.40XD - Allergy, unspecified, subsequent encounter, Z13.220 - Encounter for screening for lipoid disorders Lipid Panel 02/06/25 D64.9 - Anemia, unspecified, F41.9 - Anxiety disorder, unspecified, G43.909 - Migraine, unspecified, not intractable, without status migrainosus, I10 - Essential (primary) hypertension, T78.40XD - Allergy, unspecified, subsequent encounter, Z13.220 - Encounter for screening for lipoid disorders Lyme IgG/IgM w/reflex to WB 02/06/25 D64.9 - Anemia, unspecified, F41.9 - Anxiety disorder, unspecified, G43.909 - Migraine, unspecified, not intractable, without status migrainosus, I10 - Essential (primary) hypertension, T78.40XD - Allergy, unspecified, subsequent encounter, Z13.220 - Encounter for screening for lipoid disorders MM tomosynthesis screening BI 02/06/25 Z12.31 - Encounter for screening mammogram for malignant neoplasm of breast Referrals Cologuard Test Z12.11 - Encounter for screening for malignant neoplasm of colon, Z12.12 - Encounter for screening for malignant neoplasm of rectum Medications: New Wegovy (semaglutide (weight loss)) [facility] [id number] [facility] [id number] Member [id number] 0.5 mg (0.5 mL) subcut QWEEK 2 mL 3RF NS dextroamphetamine-amphetamine 10 mg (Adderall) administer doses at least 4-6 hours apart; Partial Fill upon patient request. 10 mg PO BID 60 tabs 0RF R41.840 - Attention and concentration deficit
[2025-02-06 16:04] VITALS: BP 138/60; PULSE 81; RESP 16; TEMP 36.3; O2SAT 100; BMI 32.2
--- OUTSIDE RECORDS SUMMARY | 2025-02-06 17:46 | XMS_ITS | Encounter Summary ---
Author Organization [facility] Prior to 12/11/2023 Address [address] [place] [address] Care Team Providers Care Calibration Specialist Name Role Phone Community, Pcp Unavailable Unavailable Dom Tinajero DO Primary Care Provider Unavaila ble Reason for Visit * Reason Onset Date Comments Orders Call 08/18/2022 Encounter Details Date Type Department Care Team Description 08/18/2022 Telephone OBN - [address] [address] Sophia Choi CNM Orders Call Social History Tobacco Use Types Packs/Day Years Used Date Smoking Tobacco: Former Cigarettes Q uit: 08/10/2003 Smokeless Tobacco: Never Alcohol Use Standard Drinks/Week Comments Yes 0 (1 standard drink = 0.6 oz pure alcohol) perhaps one drink per month at most Sex Assigned at Date Recorded Not on file COVID-19 Exposure Response Date Recorded In the last 10 days, have yo u been in contact with someone who was confirmed or suspected to have Coronavirus/COVID-19? No / Unsure 08/18/2022 4:08 PM EDT documented as of this encounter Miscellaneous Notes * Telephone Encounter - Tiffanie damon Jonathan - 08/18/2022 3:54 PM EDT An order was placed for a breast u/s complete, however we do limited breast u/s. If there is a specific area of the breast that you'd like evaluated then please change the order to limited. Once changed, I will call the pt to schedule. If you'd like the whole breast evaluated, please change the order to external and have it faxed to [facility]. Please advise. Thank you. documented in this encounter Plan of Treatment Not on file documented as of this encounter Visit Diagnoses Not on filedocumented in this encounter Care Teams Calibration Specialist Relationship Specialty Start Date End Date Dom Tinajero DO PCP - General Internal Medicine 07/09/21 Community, Pcp 06/30/11 documented as of this encounter
--- OUTSIDE RECORDS SUMMARY | 2025-02-06 17:46 | XMS_ITS | Encounter Summary ---
Author Organization [facility] [employer] [facility] Prior to 12/11/2023 Address [address] [place] [address] Care Team Providers Care Social Science Manager Name Role Phone Community, Pcp Unavailable Unavailable Dom Tinajero DO Primary Care Provider Unavaila ble Reason for Visit * Reason Comments E-prescribe Rx Request Encounter Details Date Type Department Care Team Description 10/24/2021 Refill Adult Medicine - [address] [address] Katrin Combs PA-C E-prescribe Rx Request Social History Tobacco Use Types Packs/Day Years Used Date Smoking Tobacco: Former Cigarettes Q uit: 08/10/2003 Smokeless Tobacco: Never Alcohol Use Standard Drinks/Week Comments Yes 0 (1 standard drink = 0.6 oz pure alcohol) perhaps one drink per month at most Sex Assigned at Date Recorded Not on file documented as of this encounter Miscellaneous Notes * Telephone Encounter - Dom Tinajero DO - 10/24/2021 1:03 PM EDT Pt needs to evaluate before refill medication. Robaxin not induicated for chronic use, unless needed * Telephone Encounter - Ana Gaona L.P.N. - 10/24/2021 12:50 PM EDT Last seen 6/2 Next - none * Telephone Encounter - Kenny Bernal - 10/24/2021 10:44 AM EDT Patient would like script to be: E-PRESCRIBED/FAXED TO PHARMACY WHEN WAS THE PATIENT'S LAST APPOINTMENT IN ADULT MEDICINE? 11/30/2020 WHEN WAS THE LAST TIME THE PATIENT SAW THEIR PCP? Does patient have an upcoming appointment? No-unable to reach left [facility] to call for appointment due to refill request. Appt due (THE MEDICATION REQUESTED IS ON THE MED LIST ABOVE) All of the medications requested were on the CURRENT MEDS list Did you check the Pharmacy information above?: YES Patient wants: 30 -day supply Is this a mail order prescription request ? NO If the refill is from a FAXED refill request what is the RX # listed on the fax? N/A Patients current insurance carrier is: Payor: HILARIA SELF FUNDED / Plan: [employer] $20 ELLEN 1500 / Product Type: HMO [id number] documented in this encounter Plan of Treatment Not on file documented as of this encounter Visit Diagnoses Not on filedocumented in this encounter Care Teams Social Science Manager Relationship Specialty Start Date End Date Dom Tinajero DO PCP - General Internal Medicine 07/09/21 Community, Pcp 06/30/11 documented as of this encounter
--- OUTSIDE RECORDS SUMMARY | 2025-02-06 17:46 | XMS_ITS | Encounter Summary ---
Author Organization [facility] Prior to 12/11/2023 Address [address] [place] [address] Care Team Providers Care Coating Machine Operator Helper Name Role Phone Ruthie Day MD Primary Care Provider Un available Community, Pcp Unavailable Unavailable Dom Tinjaero DO Primary Care Provider Unavaila ble Reason for Referral * Radiology Services - Closed Specialty Diagnoses / Procedures Referred By Contac t Referred To Contact Radiology Diagnoses Abnormal MRI, breast Procedures MRI BREAST BILATERAL Odalys Schultz MD [address] [place] [address] [facility] [address] [place] [id number] Referral ID Status Reason Start Date Expiration Date Visits Re quested Visits Authorized [id number] Closed 12/19/2014 03/19/2015 1 1 Reason for Visit * Reason Onset Date Comments radiology 12/18/2014 bilateral breast mri. Encounter Details Date Type Department Care Team Description 12/18/2014 Telephone BORING MACHINE SET UP OPERATOR JIG - [address] [phone] Odalys Schultz MD radiology (bilateral breast mri.) Social History Tobacco Use Types Packs/Day Years Used Date Smoking Tobacco: Former Smokeless Tobacco: Never Alcohol Use Standard Drinks/Week Comments Yes 0 (1 standard drink = 0.6 oz pur e alcohol) 1 x day w dinner Sex Assigned at Date Recorded Not on file documented as of this encounter Miscellaneous Notes * Telephone Encounter - Ana Paula Bernardo R.N. - 12/18/2014 1:51 PM EST Order has been placed * Telephone Encounter - Adriana Carson - 12/18/2014 12:16 PM EST Can you please re-order Yelitza Capone mri breast? She contacted the mri office today to book hertest. Thanks. Adriana, Mri Department. documented in this encounter Plan of Treatment Not on file documented as of this encounter Results * MRI BREAST BILATERAL (01/18/2015 11:52 AM EST) 01/25/2015 4:21 PM EST Impressions MUNA OTERO OTHER EXTERNAL - 01/26/2015 9:20 AM EST IMPRESSION: 1. Probably benign finding right breast stable when compared with baseline 12/26/2013 breast MRI. Followup breast MRI in one year is recommended to demonstrate 2 years of stability needed to conclusively characterize as benign. 2. 18 mm hyperintense lesion near segment left lobe liver incompletely visualized most commonly representing incidental cyst/hemangioma. Liver ultrasound is recommended for complete visualization and further characterization. BI-RADS 3-probably benign. Narrative MUNA MCKOYD OTHER EXTERNAL - 01/26/2015 9:20 AM EST BILATERAL BREAST MRI WITH AND WITHOUT CONTRAST: History: Followup breast MRI compared with baseline 12/26/2013. Technique: Multiplanar, multiphasic MRI performed with and without contrast on a 1.5 Purnima magnet using Department protocol. 20 cc Magnevist were administered intravenously. Interpretation was made with benefit of [employer]. Comparison: 12/26/2013 baseline breast MRI. Mild background parenchymal enhancement pattern. Right breast: Focal area of non-mass enhancement lateral right breast at 3:00 is stable in size and appearance with benign progressive contrast kinetics when compared with baseline study. No architectural distortion or skin thickening in the right breast. No lymphadenopathy is seen. Left breast: There is no suspicious mass lesion, abnormal threshold enhancement, suspicious washout contrast kinetics, architectural distortion, or skin thickening in the left breast. No lymphadenopathy is seen. An incompletely visualized 18 mm hyperintense mass is seen in the left lobe liver near midline most likely representing a benign cyst or hemangioma. This portion of the liver was not covered on prior breast MRI. Ultrasound is recommended. Procedure Note Emerson Bowers MD - 01/26/2015 BILATERAL BREAST MRI WITH AND WITHOUT CONTRAST: History: Followup breast MRI compared with baseline 12/26/2013. Technique: Multiplanar, multiphasic MRI performed with and withoutcontrast on a 1.5 Purnima magnet using Department protocol. 20 cc Magnevist were administeredintravenously. Interpretation was made with benefit of [employer]. Comparison: 12/26/2013 baseline breast MRI. Mild background parenchymal enhancement pattern. Right breast: Focal area of non-mass enhancement lateral right breast at3:00 is stable in size and appearance with benign progressive contrast kinetics when comparedwith baseline study. No architectural distortion or skin thickening in the right breast. Nolymphadenopathy is seen. Left breast: There is no suspicious mass lesion, abnormal thresholdenhancement, suspicious washout contrast kinetics, architectural distortion, or skin thickening inthe left breast. No lymphadenopathy is seen. An incompletely visualized 18 mm hyperintense mass is seen in the leftlobe liver near midline most likely representing a benign cyst or hemangioma. This portion of theliver was not covered on prior breast MRI. Ultrasound is recommended. IMPRESSION: 1. Probably benign finding right breast stable when compared with ltcvllut13/17/2014 breast MRI. Followup breast MRI in one year is recommended to demonstrate 2 yearsof stability needed to conclusively characterize as benign. 2. 18 mm hyperintense lesion near segment left lobe liver incompletelyvisualized most commonly representing incidental cyst/hemangioma. Liver ultrasound is recommendedfor complete visualization and further characterization. BI-RADS 3-probably benign. Odalys Schultz MD [facility] OTHER EXTERNAL documented in this encounter Visit Diagnoses Diagnosis Abnormal MRI, breast- Primary Other (abnormal) findings on radiological examination of breast Abnormal MRI, breast- Primary Other (abnormal) findings on radiological examination of breast Liver cyst Other specified disorders of liver documented in this encounter Care Teams Coating Machine Operator Helper Relationship Specialty Start Date End Date Ruthie Day MD PCP - General Internal Medicine 07/25/14 Dom Tinajero DO PCP - General Internal Medicine 07/09/21 [facility] Pcp 06/30/11 documented as of this encounter
--- OUTSIDE RECORDS SUMMARY | 2025-02-06 17:46 | XMS_ITS | Encounter Summary ---
Author Organization [facility] Prior to 12/11/2023 Address [address] [place] [address] Care Team Providers Care Binding Printer Name Role Phone Community, Pcp Unavailable Unavailable Dom Tinajero DO Primary Care Provider Unavaila ble Reason for Visit * Reason Comments E-prescribe Rx Request Encounter Details Date Type Department Care Team Description 06/06/2022 Refill Adult Medicine [address] [address] Dom Tinajero DO E-prescribe Rx Request Social History Tobacco Use [...] suspected to have Coronavirus/COVID-19? No / Unsure 05/26/2022 2:49 PM EDT documented as of this encounter Miscellaneous Notes * Telephone Encounter - Ana Gaona L.P.N. - 06/11/2022 9:30 AM EDT Left message on unverified voice mail for patient to return our call. Advised last refill to call for appointment * Telephone Encounter - Kenny Bernal - 06/10/2022 9:54 AM EDT Patient would like script to be: E-PRESCRIBED/FAXED TO PHARMACY WHEN WAS THE PATIENT'S LAST APPOINTMENT IN ADULT MEDICINE? 08/08/2021 WHEN WAS THE LAST TIME THE PATIENT SAW THEIR PCP? Does patient have an upcoming appointment? [facility] to [facility] [...] is: Payor: HILARIA SELF FUNDED / Plan: [employer] $20 BARNARD 1500 / Product Type: HMO [id number] documented in this encounter Plan of Treatment Not on file documented as of this encounter Visit Diagnoses Diagnosis Anxiety Anxiety state, unspecified documented in this encounter Care Teams Binding Printer Relationship Specialty Start Date End Date Dom Tinajero DO PCP - General Internal Medicine 07/09/21 [facility], Pcp 06/30/11 documented as of this encounter
--- OUTSIDE RECORDS SUMMARY | 2025-02-06 17:47 | XMS_ITS | Encounter Summary ---
Author Organization [facility] Prior to 12/11/[address] [place] [address] Care Team Providers Care Epidemiologist Name Role Phone Choco Ramsay MD Primary Care Provider Ruthie Harper MD Primary Care Provider Un available Community, Pcp Unavailable Unavailable Dom Tinajero DO Primary Care Provider Unavaila ble Reason for Visit * Reason Onset Date Comments Testing 09/07/2013 MRI breast CPT 7 7059 Encounter Details Date Type Department Care Team Description 09/07/2013 Telephone MASTER SONAR TECHNICIAN - [address] [id number] Odalys Schultz MD Testing (MRI breast CPT 03318) Social History Tobacco Use Types Packs/Day Years Used Date Smoking Tobacco: Former Smokeless Tobacco: Never Alcohol Use Standard Drinks/Week Comments Yes 0 (1 standard drink = 0.6 oz pur e alcohol) 1 x day w dinner Sex Assigned at Date Recorded Not on file documented as of this encounter Miscellaneous Notes * Telephone Encounter - Odalys Schultz MD - 10/06/2013 2:32 PM EDT Spoke with a Mr [employer] at [employer], who has given verbal approval and will send written confirmation within 3 hrs. OK to book MRI for patient. Odalys Schultz MD * Telephone Encounter - Wojciech Cortez - 09/07/2013 2:38 PM EDT Insurance denied MRI Breast CPT 73759. For peer to peer reconsideration, please call option #4. Case # is [id number], please advise. documented in this encounter Plan of Treatment Not on file documented as of this encounter Visit Diagnoses Not on filedocumented in this encounter Care Teams Epidemiologist Relationship Specialty Start Date End Date Choco Ramsay MD PCP - General Internal Medicine 02/26/12 07/24/14 Ruthie Day MD PCP - General Internal Medicine 07/25/14 Dom Tinajero DO PCP - General Internal Medicine 07/09/21 [facility], Pcp 06/30/11 documented as of this encounter
--- OUTSIDE RECORDS SUMMARY | 2025-02-06 17:47 | XMS_ITS | Encounter Summary ---
Author Organization [facility] Prior to 12/11/2023 Address [address] [place] [address] Care Team Providers Care Web Press Operator Apprentice Name Role Phone Community, Pcp Unavailable Unavailable Dom Tinajero DO Primary Care Provider Unavaila ble Reason for Visit * Reason Onset Date Comments TEST RESULTS 08/26/2022 Encounter Details Date Type Department Care Team Description 08/26/2022 Telephone OBGYN - [facility] [address] [place] [address] Sophia Choi CNM TEST RESULTS Social History Tobacco Use Types Packs/Day Years [...] encounter Miscellaneous Notes * Telephone Encounter - Lashell Granger C.M.A. - 09/15/2022 10:52 AM EDT Called [phone] Left VM for pt to return call. * Telephone Encounter - Sara Gurrola - 09/10/2022 1:19 PM EDT Patient returned call please call cell phone [phone] * Telephone Encounter - Yancy ArredondoP.N. - 09/08/2022 11:37 AM EDT Left message for pt to call office. Ext [phone] * Telephone Encounter - Yancy ArredondoP.N. - 09/02/2022 11:48 AM EDT Left message for pt to call office. Ext [phone] * Telephone Encounter - Lashell Granger C.M.A. - 08/26/2022 1:13 PM EDT Left VM for pt to return call. * Telephone Encounter - Lashell Granger C.M.A. - 08/26/2022 1:12 PM EDT ----- Message from Sophia Chio CNM sent at 08/25/2022 1:05 PM EDT ----- I have reviewed the Pathology report. Based on the result, this patient should have a follow-up. Schedule for Colposcopy documented in this encounter Plan of Treatment Not on file documented as of this encounter Visit Diagnoses Not on filedocumented in this encounter Care Teams Web Press Operator Apprentice Relationship Specialty Start Date End Date Dom Tinajero DO PCP - General Internal Medicine 07/09/21 [facility], Pcp 06/30/11 documented as of this encounter
--- OUTSIDE RECORDS SUMMARY | 2025-02-06 17:47 | XMS_ITS | Encounter Summary ---
Author Organization [facility] Prior to 12/11/2023 Address [address] [place] [address] Care Team Providers Care Gas Tender Name Role Phone Community, Pcp Unavailable Unavailable Dom Tinajero DO Primary Care Provider Unavaila ble Encounter Details Date Type Department Care Team Description 09/17/2022 Telephone OBGYN - [place] [address] [place], [place] [id number] Sophia Choi CNM Social History Tobacco Use Types Packs/Day Years [...] suspected to have Coronavirus/COVID-19? No / Unsure 09/17/2022 2:47 PM EDT documented as of this encounter Miscellaneous Notes * Telephone Encounter - Wanda Norman C.M.A. - 09/17/2022 3:46 PM EDT Patient came into the [place] office 09/17/2022 and was given her test result of her PAP. Patient aware her pap smear came out LSIL andHPV was negative so she scheduled appt for Colposcopy with Dr. Soares in the [place] office. documented in this encounter Plan of Treatment Not on file documented as of this encounter Visit Diagnoses Not on filedocumented in this encounter Care Teams Gas Tender Relationship Specialty Start Date End Date Dom Tinajero DO PCP - General Internal Medicine 07/09/21 [facility], Pcp 06/30/11 documented as of this encounter
--- OUTSIDE RECORDS SUMMARY | 2025-02-06 17:47 | XMS_ITS | Encounter Summary ---
Author Organization [facility] Prior to 12/11/2023 Address [address] [place] [address] Care Team Providers Care Rose Grader Name Role Phone Community, Pcp Unavailable Unavailable Dom Tinajero DO Primary Care Provider Unavaila ble Reason for Referral * EXTERNAL (Routine) - Authorized/Booked Specialty Diagnoses / Procedures Referred By Contbrad t Referred To Contact Allergy & Immunology / Allergy Diagnoses Anaphylaxis, initial encounter Procedures REFERRAL TO ALLERGY Dom Tinajero DO [address] [place] [address] Portillo Verma MD [address] [place] [id number] Referral ID Status Reason Start Date Expiration Date V isits Requested Visits Authorized [id number] Authorized/B ooked 10/28/2022 01/27/2023 1 1 Reason for Visit * Reason Onset Date Comments REFERRAL 10/28/[address] PORTILLO VERMA AT HIS NEW OFFICE TODAY 2022 @3:15PM EST. NEED NEW REFERRAL ORDER FOR [facility] Dr. Portillo Verma[address] [place] [address].. ORDER PENDING NEED TO FAX INFO ASAP. SUAREZ Encounter Details Date Type Department Care Team Description 10/28/2022 Telephone Internal Medicine - [place] [address], [address] [place] [address] Dom Tinajero DO REFERRAL (PATIENT CAN SEE DR PORTILLO VERMA AT HIS NEW OFFICE TODAY 2022 @3:15PM EST. NEED NEW REFERRAL ORDER FOR [facility] Dr. Portillo Verma/[address] [place] [address].. ORDER PENDING NEED TO FAX INFO P[facility]RO. DK) Social History Tobacco Use Types Packs/Day Years [...] suspected to have Coronavirus/COVID-19? No / Unsure 10/22/2022 10:21 AM EDT documented as of this encounter Miscellaneous Notes * Telephone Encounter - Dom Tinajero DO - 10/28/2022 12:44 PM EDT Order placed as requested 1. Anaphylaxis, initial encounter REFERRAL TO ALLERGY * Telephone Encounter - Esthela Umaña - 10/28/2022 11:32 AM EDT PATIENT CAN SEE DR PORTILLO VERMA AT HIS NEW OFFICE TODAY 2022 @3:15PM EST. NEED NEWREFERRAL ORDER FOR [facility] Dr. Portillo Verma [address] [place] [id number].. ORDER PENDING NEED TO FAX INFO [facility]. DK documented in this encounter Plan of Treatment Not on file documented as of this encounter Visit Diagnoses Diagnosis Anaphylaxis, initial encounter- Primary documented in this encounter Care Teams Rose Grader Relationship Specialty Start Date End Date Dom Tinajero DO PCP - General Internal Medicine 07/09/21 Community, Pcp 06/30/11 documented as of this encounter
--- OUTSIDE RECORDS SUMMARY | 2025-02-06 17:47 | XMS_ITS | Clinical Summary ---
Author Organization [employer] Address [address] [facility] [address] [place] [address] Care Team Providers Care Buttoner Name Role Phone Unavailable Primary Care Provider [...] Cancer Screening 2008 HPV/Cotest 2008 Mammogram 2018 Dental X-Ray: Bitewings 04/01/2024 03/31/2023 COVID-19 Vaccine (4 - 2024-2 6 season) 2024 04/27/2021, 11/06/2020, 10/16/2020 Influenza Vaccine (#1) 2024 , 10/29/2015 DTaP/Tdap/Td [...] Relevant to Health Maintenance Insurance [facility]AL - [facility]
--- OUTSIDE RECORDS SUMMARY | 2025-02-06 17:47 | XMS_ITS | Encounter Summary ---
Author Organization [facility] Prior to 12/11/[address] [place] [address] Care Team Providers Care Public Interviewer Name Role Phone Ruthie Day MD Primary Care Provider Un available Community, Pcp Unavailable Unavailable Dom Tinajero DO Primary Care Provider Unavaila ble Reason for Visit * Reason Comments E-prescribe Rx Request Encounter Details Date Type Department Care Team Description 11/26/2020 Refill Medicine/Pediatrics - [address] [phone] Ruthie Day MD E-prescribe Rx Request Social History Tobacco Use Types Packs/Day Years Used Date Smoking Tobacco: Former Cigarettes Q uit: 08/10/2003 Smokeless Tobacco: Never Alcohol Use Standard Drinks/Week Comments Yes 0 (1 standard drink = 0.6 oz pure alcohol) perhaps one drink per month at most Sex Assigned at Date Recorded Not on file documented as of this encounter Miscellaneous Notes * Telephone Encounter - Michelle Brower PA-C - 11/26/2020 11:54 AM EDT Please confirm with patient if she is even talking medication. This is unlikely as she has not had any refills since August. Please confirm, but likely should wait for upcoming appt to discuss this further. * Telephone Encounter - Jese Macdonald M.A. - 11/26/2020 11:50 AM EDT Please review pt has not had med refilled since receiving a 30 day supply in 08/2020 - has upcoming appt on 11/30 * Telephone Encounter - Nori Jackson - 11/26/2020 11:35 AM EDT Patient would like script to be: E-PRESCRIBED/FAXED TO PHARMACY WHEN WAS THE PATIENT'S LAST APPOINTMENT IN ADULT MEDICINE? 05/08/2020 WHEN WAS THE LAST TIME THE PATIENT SAW THEIR PCP? Same as above Does patient have an upcoming appointment? Yes 11/30/2020 (THE MEDICATION REQUESTED IS ON THE MED [...] N/A Patients current insurance carrier is: Payor: [facility] / Plan: PPO $25 [place] [id number] / Product Type: PPO [id number] documented in this encounter Plan of Treatment Not on file documented as of this encounter Visit Diagnoses Not on filedocumented in this encounter Care Teams Public Interviewer Relationship Specialty Start Date End Date Ruthie Day MD PCP - General Internal Medicine 07/25/14 Dom Tinajero DO PCP - General Internal Medicine 07/09/21 [facility], Pcp 06/30/11 documented as of this encounter
== END 2025-02-06 16:48 | disposition home or self-care (01) ==
LOC: HO.HMCFM 15:57
PROVIDERS: PCP Internal Medicine; Visit Provider Internal Medicine
DX: Z00.00 Encounter for general adult medical examination without abnormal findings (principal); I10 Essential (primary) hypertension; R41.840 Attention and concentration deficit; E66.811 Obesity, class 1

== ENCOUNTER → 2025-02-06 15:57 | Outpatient (BNVA) | payer OTHER, SELFPAY | PROVIDERS: PCP Internal Medicine; Visit Provider Internal Medicine | DX: Z00.00 Encounter for general adult medical examination without abnormal findings (principal); I10 Essential (primary) hypertension; R41.840 Attention and concentration deficit; E66.811 Obesity, class 1; Z68.32 Body mass index [BMI] 32.0-32.9, adult; Z71.3 Dietary counseling and surveillance | CPT/HCPCS: 96127 ==